=== PATIENT | male | born 1985 | race Two or more races ===

== ENCOUNTER 2020-10-30 00:40 | Inpatient (IN) | payer OTHER ==
[~2020-10-30] VITALS: Ht 172.7 cm; Wt 81.6 kg
[2020-10-30] MEDS ORDERED: KETOROLAC 30MG/ML VIAL IV STA (01:03)
[2020-10-30] MEDS ORDERED: ONDANSETRON HCL 4MG/2ML INJ IV STA (01:03)
[2020-10-30] MEDS ORDERED: SODIUM CHLORIDE 0.9% 1,000 ML IV ONE (01:15)
[2020-10-30 01:18] LABS: BASOPHILS % 0.5 % (0.0-2.0); HEMATOCRIT. 42.3 % (42.0-52.0); HEMOGLOBIN. 13.2 g/dL (14.0-18.0); LYMPHOCYTES % 13.1 % (20.0-50.0); MEAN CORPUSCULAR HEMOGLOBIN 21.3 pg (28.0-32.0); MEAN CORPUSCULAR VOLUME 68.5 fL (80.0-94.0); MEAN PLATELET VOLUME 7.1 fl (7.4-10.4); MONOCYTES % 3.1 % (2.0-8.0); NEUTROPHILS % 83.3 % (40.0-76.0); PLATELET 464 x1000/uL (130-400); RED BLOOD CELL COUNT 6.18 mill/uL (4.7-6.1); RED CELL DISTRIBUTION WIDTH 19.7 % (11.6-14.6)
[2020-10-30 01:27] LABS: CHLORIDE 96 mEq/L (98-107)
[2020-10-30 01:55] LABS: PLATELET ESTIMATE INCREASED
[2020-10-30 02:23] LABS: CLARITY URINE CLEAR (CLEAR); COLOR URINE YELLOW (YELLOW); KETONES URINE 3+ (NEGATIVE); LEUKOCYTE ESTERASE URINE NEGATIVE (NEGATIVE); NITRITE URINE NEGATIVE (NEGATIVE); OCCULT BLOOD URINE NEGATIVE (NEGATIVE); PROTEIN URINE 2+ (NEGATIVE); SPECIFIC GRAVITY URINE 1.029 (1.005-1.030); UROBILINOGEN URINE 0.2 E.U./dL (0.2-1.0)
[2020-10-30] MEDS ORDERED: MORPHINE SULFATE 10 MG/ML CPJ IV SCH (02:45)
[2020-10-30] MEDS: ONDANSETRON HCL 4MG/2ML INJ IV PRN ×2 (06:16→10:49)
[2020-10-30] MEDS: MORPHINE SULFATE 4 MG/ML CPJ (NOT FOR IM USE) IV PRN ×4 (06:17→20:57)
[2020-10-30] MEDS ORDERED: INSULIN LISPRO 100 UNITS/ML SUBCUT SCH (07:00)
[2020-10-30] MEDS ORDERED: METF-416 MT (10:25)
[2020-10-30 10:34] VITALS: BP 176/113
[2020-10-30 11:07] VITALS: BP 176/113
[2020-10-30] MEDS ORDERED: DEXTROSE 50% WATER 50ML SYRINGE IV PRN (11:15)
[2020-10-30 12:00] VITALS: BP 159/107
[2020-10-30] MEDS: BLOOD SUGAR DIAGNOSTIC STRIP TEST SCH ×3 (12:20→21:13)
[2020-10-30] MEDS: METOCLOPRAMIDE HCL 10MG/2ML VIAL IV SCH ×3 (12:40→23:49)
[2020-10-30] MEDS: INSULIN LISPRO 100 UNITS/ML SUBCUT SCH ×3 (12:43→21:12)
[2020-10-30] MEDS ORDERED: HYDRALAZINE 20MG/ML VIAL IV NR (12:45)
[2020-10-30] MEDS: AMLODIPINE 10MG TABLET PO SCH (13:17)
[2020-10-30] MEDS ORDERED: INSULIN GLARGINE UD 100 UNITS/ML SYR SUBCUT NR (13:30)
[2020-10-30] MEDS ORDERED: POTASSIUM CHLORIDE INJ 40 MEQ in DEXT 5% WATER 250 ML IV NR (13:30)
[2020-10-30] MEDS ORDERED: MAGNESIUM/ALUMINUM HYDROXIDE/SIMETHICONE 30ML UDC PO PRN (14:15)
[2020-10-30] MEDS: LORAZEPAM 0.5MG TABLET PO PRN (14:31)
[2020-10-30 16:00] VITALS: BP 161/86
[2020-10-30] MEDS ORDERED: HYDROCODONE/ACETAMINOPHEN 5/325MG TABLET PO PRN (16:45)
[2020-10-30 20:00] VITALS: BP 158/88
[2020-10-30] MEDS: METOPROLOL TARTRATE 50MG TABLET PO SCH (20:56)
[2020-10-30] MEDS: INSULIN GLARGINE UD 100 UNITS/ML SYR SUBCUT SCH (21:13)
[2020-10-30 21:29] LABS: *BARBITURATES SCREEN URINE NEGATIVE (NEGATIVE); *BENZODIAZEPINES SCREEN URINE NEGATIVE (NEGATIVE); *COCAINE SCREEN URINE NEGATIVE (NEGATIVE)
[2020-10-30 21:31] LABS: CANNABINOID URINE SCREEN PRESUMTIVE POSITIVE (NEGATIVE); METHADONE URINE SCREEN NEGATIVE (NEGATIVE); OPIATES URINE SCREEN PRESUMTIVE POSITIVE (NEGATIVE); PHENCYCLIDINE URINE SCREEN NEGATIVE (NEGATIVE)
[2020-10-30 21:33] LABS: *AMPHETAMINES SCREEN URINE NEGATIVE (NEGATIVE)
[2020-10-31] VITALS: BP 146/94
[2020-10-31] MEDS: LORAZEPAM 0.5MG TABLET PO PRN (01:42)
[2020-10-31 04:00] VITALS: BP 129/83
[2020-10-31] MEDS: METOCLOPRAMIDE HCL 10MG/2ML VIAL IV SCH (06:21)
[2020-10-31] MEDS ORDERED: OMEPRAZOLE 20MG CAPSULE EXTENDED RELEASE PO SCH (07:20)
[2020-10-31 07:21] LABS: BASOPHILS % 0.7 % (0.0-2.0); HEMATOCRIT. 36.6 % (42.0-52.0); HEMOGLOBIN. 12.1 g/dL (14.0-18.0); LYMPHOCYTES % 20.5 % (20.0-50.0); MEAN CORPUSCULAR HEMOGLOBIN 22.3 pg (28.0-32.0); MEAN CORPUSCULAR VOLUME 67.2 fL (80.0-94.0); MEAN PLATELET VOLUME 7.7 fl (7.4-10.4); NEUTROPHILS % 66.8 % (40.0-76.0); PLATELET 292 x1000/uL (130-400); RED BLOOD CELL COUNT 5.46 mill/uL (4.7-6.1); RED CELL DISTRIBUTION WIDTH 19.1 % (11.6-14.6)
[2020-10-31 07:35] LABS: CHLORIDE 94 mEq/L (98-107)
[2020-10-31] MEDS: BLOOD SUGAR DIAGNOSTIC STRIP TEST SCH (07:47)
[2020-10-31] MEDS: AMLODIPINE 10MG TABLET PO SCH (08:54)
[2020-10-31] MEDS: METOPROLOL TARTRATE 50MG TABLET PO SCH (08:54)
[2020-10-31] MEDS: INSULIN LISPRO 100 UNITS/ML SUBCUT SCH (08:55)
[2020-10-31 09:01] VITALS: BP 125/71
[2020-10-31] MEDS: MORPHINE SULFATE 4 MG/ML CPJ (NOT FOR IM USE) IV PRN (09:01)
[2020-10-31] MEDS: INSULIN GLARGINE UD 100 UNITS/ML SYR SUBCUT SCH (10:00)
== END 2020-10-31 10:50 | disposition left against medical advice (07) | DRG 48 ==
LOC: ER 00:49 → 6WST 05:42 → ENRESERV 08:46
PROVIDERS: ADMIT Internal Medicine; ATTEND Internal Medicine
DX: E11.43 Type 2 diabetes mellitus with diabetic autonomic (poly)neuropathy (principal); E87.8 Other disorders of electrolyte and fluid balance, not elsewhere classified; K76.0 Fatty (change of) liver, not elsewhere classified; E11.65 Type 2 diabetes mellitus with hyperglycemia; K31.84 Gastroparesis; K52.9 Noninfective gastroenteritis and colitis, unspecified; E87.1 Hypo-osmolality and hyponatremia; E87.6 Hypokalemia; Z53.29 Procedure and treatment not carried out because of patient's decision for other reasons; Z82.49 Family history of ischemic heart disease and other diseases of the circulatory system; Z87.442 Personal history of urinary calculi
CPT/HCPCS: 36415; 74176; 80048; 80053; 80305; 81003; 82962; 83036; 85025; 93005; 99285; J0360; J1815; J1885; J2270; J2405; J2765; J3480; J7030; J7060

== ENCOUNTER 2020-12-12 01:51 | Inpatient (IN) | payer MEDICAID, OTHER ==
[~2020-12-12] VITALS: Ht 172.7 cm; Wt 88.5 kg
[~2020-12-12 01:51] MED LIST: METF-416 MT
[2020-12-12] MEDS ORDERED: KETOROLAC 30MG/ML VIAL IV STA (02:48)
[2020-12-12] MEDS ORDERED: ONDANSETRON HCL 4MG/2ML INJ IV STA (02:48)
[2020-12-12] MEDS ORDERED: FAMOTIDINE 20MG/2ML VIAL IV STA (02:48)
[2020-12-12] MEDS ORDERED: SODIUM CHLORIDE 0.9% 1,000 ML IV ONE (03:00)
[2020-12-12 03:28] LABS: HEMATOCRIT. 33.8 % (42.0-52.0); HEMOGLOBIN. 10.9 g/dL (14.0-18.0); MEAN CORPUSCULAR HEMOGLOBIN 24.2 pg (28.0-32.0); MEAN PLATELET VOLUME 7.5 fl (7.4-10.4); PLATELET 266 x1000/uL (130-400); RED CELL DISTRIBUTION WIDTH 25.2 % (11.6-14.6)
[2020-12-12] MEDS: DIPHENHYDRAMINE 50MG/ML VIAL IV NR ×2 (03:28→08:35)
[2020-12-12] MEDS ORDERED: MORPHINE SULFATE 4 MG/ML CPJ (NOT FOR IM USE) IV NR (03:30)
[2020-12-12 03:32] LABS: CHLORIDE 97 mEq/L (98-107)
[2020-12-12 03:47] LABS: CLARITY URINE CLEAR (CLEAR); COLOR URINE YELLOW (YELLOW); KETONES URINE 1+ (NEGATIVE); LEUKOCYTE ESTERASE URINE NEGATIVE (NEGATIVE); NITRITE URINE NEGATIVE (NEGATIVE); OCCULT BLOOD URINE NEGATIVE (NEGATIVE); PROTEIN URINE NEGATIVE (NEGATIVE); SPECIFIC GRAVITY URINE 1.027 (1.005-1.030)
[2020-12-12 05:17] LABS: PLATELET ESTIMATE NORMAL
[2020-12-12] MEDS ORDERED: MORPHINE SULFATE 4 MG/ML CPJ (NOT FOR IM USE) IV ONE (06:00)
[2020-12-12] MEDS ORDERED: ONDANSETRON HCL 4MG/2ML INJ IV PRN (07:00)
[2020-12-12] MEDS ORDERED: HYDRALAZINE 20MG/ML VIAL IV PRN (07:00)
[2020-12-12] MEDS ORDERED: MAGNESIUM/ALUMINUM HYDROXIDE/SIMETHICONE 30ML UDC PO PRN (07:00)
[2020-12-12] MEDS ORDERED: DOCUSATE SODIUM 100MG CAPSULE PO PRN (07:00)
[2020-12-12] MEDS ORDERED: GUAIFENESIN 200MG/10ML SUGAR FREE UDC PO PRN (07:00)
[2020-12-12] MEDS ORDERED: ACETAMINOPHEN 325MG TABLET PO PRN (07:00)
[2020-12-12] MEDS ORDERED: CLONIDINE 0.1MG TABLET PO PRN (07:00)
[2020-12-12] MEDS ORDERED: DIPHENHYDRAMINE 50MG/ML VIAL IV PRN (07:00)
[2020-12-12] MEDS ORDERED: IPRATROPIUM/ALBUTEROL 0.5-3(2.5)MG/3ML NEB HHN PRN (07:00)
[2020-12-12] MEDS ORDERED: NALOXONE HCL 0.4MG/ML VIAL IV PRN (07:30)
[2020-12-12] MEDS ORDERED: POTASSIUM CHLORIDE 20MEQ TABLET SR PO NR (08:15)
[2020-12-12] MEDS: LORAZEPAM 2MG/ML CPJ IV PRN ×2 (08:35→22:34)
[2020-12-12] MEDS ORDERED: CEFTRIAXONE 1 G PREMIX 50 ML IV SCH (09:00)
[2020-12-12] MEDS: ENOXAPARIN 40MG/0.4ML SYR SUBCUT SCH (09:15)
[2020-12-12] MEDS: SODIUM CHLORIDE 0.45% 1,000 ML IV SCH ×2 (09:16→18:04)
[2020-12-12] MEDS: MORPHINE SULFATE 2 MG/ML CPJ (NOT FOR IM USE) IV PRN ×2 (10:20→16:51)
[2020-12-12] MEDS ORDERED: FOLIC ACID 1 MG, THIAMINE HCL 100 MG, MVI, ADULT NO.1 10 ML in DEXTROSE 5% WATER 1,000 ML IV NR (12:00)
[2020-12-12] MEDS ORDERED: HYDRALAZINE 10 MG in SODIUM CHLORIDE 0.9% 49.5 ML IV PRN (14:15)
[2020-12-12] MEDS: SODIUM CHLORIDE 0.9% INJ 3ML FLUSH IVF SCH ×2 (14:39→21:30)
[2020-12-12 15:44] VITALS: BP 144/92
[2020-12-12] MEDS ORDERED: GLIP10TA10 MT (15:55)
[2020-12-12 16:00] VITALS: BP 144/92
[2020-12-12] MEDS ORDERED: DEXTROSE 50% WATER 50ML SYRINGE IV PRN (18:15)
[2020-12-12] MEDS: BLOOD SUGAR DIAGNOSTIC STRIP TEST SCH ×2 (18:33→21:00)
[2020-12-12] MEDS: INSULIN LISPRO 100 UNITS/ML SUBCUT SCH ×2 (18:49→22:40)
[2020-12-12 20:00] VITALS: BP 146/91
[2020-12-13] VITALS: BP 148/94
[2020-12-13] MEDS: MORPHINE SULFATE 2 MG/ML CPJ (NOT FOR IM USE) IV PRN ×2 (02:39→17:52)
[2020-12-13 04:00] VITALS: BP 125/97
[2020-12-13] MEDS: SODIUM CHLORIDE 0.45% 1,000 ML IV SCH ×2 (04:53→14:39)
[2020-12-13] MEDS: LORAZEPAM 2MG/ML CPJ IV PRN (04:53)
[2020-12-13] MEDS: SODIUM CHLORIDE 0.9% INJ 3ML FLUSH IVF SCH ×2 (06:35→14:39)
[2020-12-13] MEDS: BLOOD SUGAR DIAGNOSTIC STRIP TEST SCH ×3 (06:35→17:46)
[2020-12-13] MEDS: INSULIN LISPRO 100 UNITS/ML SUBCUT SCH ×3 (07:06→17:48)
[2020-12-13 07:21] LABS: BASOPHILS % 2.1 % (0.0-2.0); EOSINOPHILS % 2.6 % (0.0-5.0); HEMATOCRIT. 36.8 % (42.0-52.0); HEMOGLOBIN. 11.9 g/dL (14.0-18.0); LYMPHOCYTES % 33.2 % (20.0-50.0); MEAN CORPUSCULAR HEMOGLOBIN 24.3 pg (28.0-32.0); MEAN CORPUSCULAR VOLUME 75.1 fL (80.0-94.0); MEAN PLATELET VOLUME 7.5 fl (7.4-10.4); MONOCYTES % 12.2 % (2.0-8.0); NEUTROPHILS % 49.9 % (40.0-76.0); PLATELET 281 x1000/uL (130-400); RED CELL DISTRIBUTION WIDTH 25.5 % (11.6-14.6)
[2020-12-13 07:42] LABS: CHLORIDE 100 mEq/L (98-107)
[2020-12-13 08:00] VITALS: BP 143/79
[2020-12-13] MEDS ORDERED: POTASSIUM CHLORIDE 20MEQ TABLET SR PO NR (08:15)
[2020-12-13] MEDS ORDERED: CEFTRIAXONE 1,000 MG in DEXTROSE 5% WATER 50 ML IV SCH (09:00)
[2020-12-13] MEDS: ENOXAPARIN 40MG/0.4ML SYR SUBCUT SCH (09:24)
[2020-12-13] MEDS ORDERED: LORAZEPAM 2MG/ML CPJ IV NR (10:00)
[2020-12-13] MEDS: HYDROCODONE/ACETAMINOPHEN 5/325MG TABLET PO PRN ×2 (11:46→16:40)
[2020-12-13 12:00] VITALS: BP 149/81
[2020-12-13 13:49] LABS: *AMPHETAMINES SCREEN URINE NEGATIVE (NEGATIVE); *BARBITURATES SCREEN URINE NEGATIVE (NEGATIVE); *BENZODIAZEPINES SCREEN URINE NEGATIVE (NEGATIVE)
[2020-12-13 13:50] LABS: METHADONE URINE SCREEN NEGATIVE (NEGATIVE); OPIATES URINE SCREEN NEGATIVE (NEGATIVE); PHENCYCLIDINE URINE SCREEN NEGATIVE (NEGATIVE)
[2020-12-13 13:51] LABS: CANNABINOID URINE SCREEN PRESUMTIVE POSITIVE (NEGATIVE)
[2020-12-13 13:52] LABS: *COCAINE SCREEN URINE NEGATIVE (NEGATIVE)
[2020-12-13] MEDS ORDERED: CHLORDIAZEPOXIDE 5 MG CAPSULE PO SCH (14:00)
[2020-12-13 16:00] VITALS: BP 139/104
[2020-12-13 17:52] VITALS: BP 139/104
== END 2020-12-13 21:10 | disposition left against medical advice (07) | DRG 282 ==
LOC: ER 01:51 → MICUSO 05:54 → EDBEDREQSVC 06:04 → EDBEDREQ 06:04 → EDBEDREQTM 06:04 → 6EST 14:03
PROVIDERS: ADMIT Internal Medicine; ATTEND Internal Medicine
DX: K85.90 Acute pancreatitis without necrosis or infection, unspecified (principal); K76.0 Fatty (change of) liver, not elsewhere classified; D64.9 Anemia, unspecified; E87.1 Hypo-osmolality and hyponatremia; E11.9 Type 2 diabetes mellitus without complications; E87.6 Hypokalemia; N20.0 Calculus of kidney; Z53.29 Procedure and treatment not carried out because of patient's decision for other reasons; F10.239 Alcohol dependence with withdrawal, unspecified; F41.9 Anxiety disorder, unspecified; Z79.84 Long term (current) use of oral hypoglycemic drugs; Z82.49 Family history of ischemic heart disease and other diseases of the circulatory system; Z86.73 Personal history of transient ischemic attack (TIA), and cerebral infarction without residual deficits
CPT/HCPCS: 36415; 71045; 74176; 80053; 80305; 81003; 82962; 83036; 85025; 93005; 99285; J0696; J1200; J1650; J1815; J1885; J2060; J2270; J2405; J3411; J3490; J7060; J7070

== ENCOUNTER 2020-12-18 04:37 | Inpatient (IN) | payer MEDICAID, OTHER ==
[~2020-12-18] VITALS: Ht 172.7 cm; Wt 82.1 kg
[~2020-12-18 04:37] MED LIST changes: +GLIP10TA10 MT
[2020-12-18] MEDS ORDERED: KETOROLAC 30MG/ML VIAL IV STA (05:10)
[2020-12-18] MEDS ORDERED: ONDANSETRON HCL 4MG/2ML INJ IV STA (05:10)
[2020-12-18] MEDS ORDERED: MORPHINE SULFATE 4 MG/ML CPJ (NOT FOR IM USE) IV ONE ×3 (05:45→08:30)
[2020-12-18 05:49] LABS: EOSINOPHILS % 0.1 % (0.0-5.0); HEMATOCRIT. 40.3 % (42.0-52.0); HEMOGLOBIN. 13.2 g/dL (14.0-18.0); LYMPHOCYTES % 27.4 % (20.0-50.0); MEAN CORPUSCULAR HEMOGLOBIN 24.8 pg (28.0-32.0); MEAN CORPUSCULAR VOLUME 75.9 fL (80.0-94.0); MEAN PLATELET VOLUME 7.1 fl (7.4-10.4); MONOCYTES % 5.9 % (2.0-8.0); NEUTROPHILS % 64.6 % (40.0-76.0); PLATELET 409 x1000/uL (130-400); RED BLOOD CELL COUNT 5.31 mill/uL (4.7-6.1); RED CELL DISTRIBUTION WIDTH 26.4 % (11.6-14.6)
[2020-12-18 05:54] LABS: CLARITY URINE CLEAR (CLEAR); COLOR URINE YELLOW (YELLOW); KETONES URINE 2+ (NEGATIVE); LEUKOCYTE ESTERASE URINE NEGATIVE (NEGATIVE); NITRITE URINE NEGATIVE (NEGATIVE); OCCULT BLOOD URINE NEGATIVE (NEGATIVE); PH URINE 5.5 (4.5-8.0); PROTEIN URINE 2+ (NEGATIVE); SPECIFIC GRAVITY URINE 1.026 (1.005-1.030)
[2020-12-18 05:55] LABS: CHLORIDE 99 mEq/L (98-107)
[2020-12-18 06:00] LABS: PROTHROMBIN TIME 10.8 sec (9.6-11.0)
[2020-12-18] MEDS ORDERED: GUAIFENESIN 200MG/10ML SUGAR FREE UDC PO PRN (10:45)
[2020-12-18] MEDS ORDERED: MAGNESIUM/ALUMINUM HYDROXIDE/SIMETHICONE 30ML UDC PO PRN (10:45)
[2020-12-18] MEDS ORDERED: ACETAMINOPHEN 325MG TABLET PO PRN (10:45)
[2020-12-18] MEDS ORDERED: DOCUSATE SODIUM 100MG CAPSULE PO PRN (10:45)
[2020-12-18] MEDS: PANTOPRAZOLE SODIUM 40 MG/VIAL IV SCH (11:20)
[2020-12-18] MEDS: DEXT 5%/0.45% NACL 1000ML 1,000 ML IV SCH (11:40)
[2020-12-18] MEDS: ONDANSETRON HCL 4MG/2ML INJ IV PRN ×2 (12:01→20:10)
[2020-12-18 14:32] LABS: PLATELET ESTIMATE SLIGHTLY INCREASED
[2020-12-18] MEDS: KETOROLAC 15MG/ML VIAL IV PRN ×2 (14:33→20:10)
[2020-12-18] MEDS: CLONIDINE 0.1MG TABLET PO PRN (14:34)
[2020-12-18] MEDS: CHLORDIAZEPOXIDE 5 MG CAPSULE PO SCH ×2 (15:25→22:06)
[2020-12-18] MEDS: LORAZEPAM 2MG/ML CPJ IV PRN (23:12)
[2020-12-19] MEDS: DEXT 5%/0.45% NACL 1000ML 1,000 ML IV SCH ×2 (01:03→13:35)
[2020-12-19] MEDS: KETOROLAC 15MG/ML VIAL IV PRN ×3 (03:13→23:23)
[2020-12-19] MEDS: LORAZEPAM 2MG/ML CPJ IV PRN ×3 (04:18→17:56)
[2020-12-19 04:29] LABS: HEMATOCRIT. 33.7 % (42.0-52.0); MEAN CORPUSCULAR HEMOGLOBIN 24.6 pg (28.0-32.0); MEAN CORPUSCULAR VOLUME 75.3 fL (80.0-94.0); PLATELET 313 x1000/uL (130-400); RED BLOOD CELL COUNT 4.48 mill/uL (4.7-6.1); RED CELL DISTRIBUTION WIDTH 26.3 % (11.6-14.6)
[2020-12-19 04:33] LABS: CHLORIDE 94 mEq/L (98-107)
[2020-12-19] MEDS: CHLORDIAZEPOXIDE 5 MG CAPSULE PO SCH ×2 (06:42→14:00)
[2020-12-19] MEDS ORDERED: DEXTROSE 50% WATER 50ML SYRINGE IV PRN (08:30)
[2020-12-19 09:00] VITALS: BP 160/106
[2020-12-19] MEDS: PANTOPRAZOLE SODIUM 40 MG/VIAL IV SCH (09:35)
[2020-12-19] MEDS ORDERED: POTASSIUM CHLORIDE 20MEQ TABLET SR PO NR (10:00)
[2020-12-19] MEDS: CLONIDINE 0.1MG TABLET PO PRN (10:10)
[2020-12-19 11:11] LABS: PLATELET ESTIMATE NORMAL
[2020-12-19 11:14] VITALS: BP 160/109
[2020-12-19 12:00] VITALS: BP 156/105
[2020-12-19] MEDS: INSULIN LISPRO 100 UNITS/ML SUBCUT SCH ×3 (13:40→21:00)
[2020-12-19 16:00] VITALS: BP 144/102
[2020-12-19] MEDS ORDERED: LORAZEPAM 1MG TABLET PO PRN (18:30)
[2020-12-19 23:23] VITALS: BP 143/103
[2020-12-20] MEDS: INSULIN LISPRO 100 UNITS/ML SUBCUT SCH (00:02)
[2020-12-20] MEDS: CLONIDINE 0.1MG TABLET PO PRN (00:02)
== END 2020-12-20 00:41 | disposition left against medical advice (07) | DRG 420 ==
LOC: ER 04:37 → MICUSO 08:26 → ENRESERV 14:27 → 6EST 12-19 07:55
PROVIDERS: ADMIT Hospitalist; ATTEND Hospitalist
DX: E11.65 Type 2 diabetes mellitus with hyperglycemia (principal); F10.139 Alcohol abuse with withdrawal, unspecified; Z86.73 Personal history of transient ischemic attack (TIA), and cerebral infarction without residual deficits; Z79.899 Other long term (current) drug therapy; Z87.19 Personal history of other diseases of the digestive system; I10 Essential (primary) hypertension
CPT/HCPCS: 36415; 74176; 76705; 80053; 81003; 82962; 83036; 85025; 93005; 99285; C9113; J1815; J1885; J2060; J2270; J2405

== ENCOUNTER 2021-04-26 18:37 | Emergency (ER) | payer MEDICAID, OTHER ==
[~2021-04-26] VITALS: Ht 170.2 cm; Wt 80.0 kg
[2021-04-26] MEDS ORDERED: ONDANSETRON HCL 4MG/2ML INJ IV STA (19:33)
[2021-04-26] MEDS ORDERED: MAGNESIUM/ALUMINUM HYDROXIDE/SIMETHICONE 30ML UDC PO STA (19:33)
[2021-04-26] MEDS ORDERED: KETOROLAC 30MG/ML VIAL IV STA (19:33)
[2021-04-26] MEDS ORDERED: VISCOUS LIDOCAINE 2% 15 ML UDC PO STA (19:33)
[2021-04-26] MEDS ORDERED: FAMOTIDINE 20MG/2ML VIAL IV ONE (19:45)
[2021-04-26] MEDS ORDERED: SODIUM CHLORIDE 0.9% 1,000 ML IV ONE (19:45)
[2021-04-26 19:59] LABS: BASOPHILS % 1.2 % (0.0-2.0); EOSINOPHILS % 0.4 % (0.0-5.0); HEMATOCRIT. 38.7 % (42.0-52.0); HEMOGLOBIN. 12.9 g/dL (14.0-18.0); LYMPHOCYTES % 22.3 % (20.0-50.0); MEAN CORPUSCULAR HEMOGLOBIN 26.7 pg (28.0-32.0); MEAN CORPUSCULAR VOLUME 80.2 fL (80.0-94.0); MEAN PLATELET VOLUME 6.6 fl (7.4-10.4); MONOCYTES % 6.1 % (2.0-8.0); PLATELET 210 x1000/uL (130-400); RED BLOOD CELL COUNT 4.83 mill/uL (4.7-6.1); RED CELL DISTRIBUTION WIDTH 25.1 % (11.6-14.6)
[2021-04-26 20:06] LABS: CHLORIDE 105 mEq/L (98-107)
[2021-04-26 20:10] LABS: ETHANOL BLOOD 172 mg/dL
[2021-04-26 20:16] LABS: PLATELET ESTIMATE NORMAL
[2021-04-26] MEDS ORDERED: LORAZEPAM 2MG/ML CPJ IV NR (21:30)
[2021-04-26 22:10] LABS: CLARITY URINE CLEAR (CLEAR); COLOR URINE YELLOW (YELLOW); KETONES URINE 1+ (NEGATIVE); LEUKOCYTE ESTERASE URINE NEGATIVE (NEGATIVE); NITRITE URINE NEGATIVE (NEGATIVE); OCCULT BLOOD URINE NEGATIVE (NEGATIVE); PH URINE 6.5 (4.5-8.0); PROTEIN URINE TRACE (NEGATIVE); SPECIFIC GRAVITY URINE 1.013 (1.005-1.030); UROBILINOGEN URINE 0.2 E.U./dL (0.2-1.0)
[2021-04-26 22:28] LABS: *BENZODIAZEPINES SCREEN URINE PRESUMTIVE POSITIVE (NEGATIVE); METHADONE URINE SCREEN NEGATIVE (NEGATIVE); OPIATES URINE SCREEN NEGATIVE (NEGATIVE)
[2021-04-26 22:29] LABS: *BARBITURATES SCREEN URINE NEGATIVE (NEGATIVE); CANNABINOID URINE SCREEN NEGATIVE (NEGATIVE); PHENCYCLIDINE URINE SCREEN NEGATIVE (NEGATIVE)
[2021-04-26 22:30] LABS: *COCAINE SCREEN URINE NEGATIVE (NEGATIVE)
[2021-04-26 22:33] LABS: *AMPHETAMINES SCREEN URINE NEGATIVE (NEGATIVE)
[2021-04-26] MEDS ORDERED: HYDROCODONE/ACETAMINOPHEN 5/325MG TABLET PO ONE (23:15)
[2021-04-26 23:34] VITALS: BP 135/90
== END 2021-04-27 00:11 | disposition home or self-care (01) ==
LOC: ER 18:37
DX: T51.0X1A Toxic effect of ethanol, accidental (unintentional), initial encounter (principal); G92.8 Other toxic encephalopathy; R74.01 Elevation of levels of liver transaminase levels; R10.31 Right lower quadrant pain; E11.9 Type 2 diabetes mellitus without complications; I10 Essential (primary) hypertension; F32.A Depression, unspecified; Y90.6 Blood alcohol level of 120-199 mg/100 ml; Z79.84 Long term (current) use of oral hypoglycemic drugs; Y92.018 Other place in single-family (private) house as the place of occurrence of the external cause
CPT/HCPCS: 36415; 74176; 80053; 80305; 80307; 80320; 80329; 81003; 83690; 85025; 93005; 96361; 96374; 96375; 99285; J1885; J2060; J2405; J3490; J7030; G0480

== ENCOUNTER 2021-12-09 06:59 | Inpatient (IN) | payer MEDICAID, OTHER ==
[~2021-12-09] VITALS: Ht 180.3 cm; Wt 79.8 kg
[2021-12-09] MEDS ORDERED: ONDANSETRON HCL 4MG/2ML INJ IV STA (07:14)
[2021-12-09] MEDS ORDERED: MORPHINE SULFATE 4 MG/ML CPJ (NOT FOR IM USE) IV STA (07:14)
[2021-12-09] MEDS ORDERED: SODIUM CHLORIDE 0.9% 1,000 ML IV ONE (07:15)
[2021-12-09 08:13] LABS: BASOPHILS % 0.4 % (0.0-2.0); HEMOGLOBIN. 13.3 g/dL (14.0-18.0); LYMPHOCYTES % 17.6 % (20.0-50.0); MEAN CORPUSCULAR HEMOGLOBIN 26.8 pg (28.0-32.0); MEAN CORPUSCULAR VOLUME 80.5 fL (80.0-94.0); MEAN PLATELET VOLUME 7.2 fl (7.4-10.4); MONOCYTES % 9.8 % (2.0-8.0); NEUTROPHILS % 72.2 % (40.0-76.0); PLATELET 275 x1000/uL (130-400); RED BLOOD CELL COUNT 4.97 mill/uL (4.7-6.1); RED CELL DISTRIBUTION WIDTH 17.7 % (11.6-14.6)
[2021-12-09 08:21] LABS: CHLORIDE 95 mEq/L (98-107)
[2021-12-09 08:22] LABS: INR 1.1; PROTHROMBIN TIME 11.4 sec (9.6-11.0)
[2021-12-09] MEDS: ONDANSETRON HCL 4MG/2ML INJ IV NR ×2 (10:39→15:51)
[2021-12-09] MEDS: MORPHINE SULFATE 4 MG/ML CPJ (NOT FOR IM USE) IV NR ×2 (10:39→15:43)
[2021-12-09] MEDS ORDERED: MORPHINE SULFATE 4 MG/ML CPJ (NOT FOR IM USE) IV ONE (11:15)
[2021-12-09 12:19] LABS: CLARITY URINE CLEAR (CLEAR); COLOR URINE YELLOW (YELLOW); KETONES URINE 4+ (NEGATIVE); LEUKOCYTE ESTERASE URINE NEGATIVE (NEGATIVE); NITRITE URINE NEGATIVE (NEGATIVE); OCCULT BLOOD URINE TRACE (NEGATIVE); PH URINE 5.5 (4.5-8.0); PROTEIN URINE 2+ (NEGATIVE); SPECIFIC GRAVITY URINE 1.032 (1.005-1.030)
[2021-12-09] MEDS ORDERED: CLONIDINE 0.1MG TABLET PO NR (13:45)
[2021-12-09 16:00] VITALS: BP 154/88
[2021-12-09] MEDS ORDERED: TRAMADOL 50MG TABLET PO PRN (16:00)
[2021-12-09] MEDS ORDERED: DEXTROSE 50% WATER 50ML SYRINGE IV PRN ×2 (16:00)
[2021-12-09] MEDS ORDERED: DOCUSATE SODIUM 100MG CAPSULE PO PRN (16:00)
[2021-12-09] MEDS ORDERED: ACETAMINOPHEN 325MG TABLET PO PRN (16:00)
[2021-12-09] MEDS ORDERED: MAGNESIUM/ALUMINUM HYDROXIDE/SIMETHICONE 30ML UDC PO PRN (16:00)
[2021-12-09] MEDS: SODIUM CHLORIDE 0.9% 1,000 ML IV SCH (16:15)
[2021-12-09] MEDS: AMLODIPINE 5MG TABLET PO SCH (18:10)
[2021-12-09] MEDS: BLOOD SUGAR DIAGNOSTIC STRIP TEST SCH ×2 (18:12→21:00)
[2021-12-09] MEDS: ENOXAPARIN 40MG/0.4ML SYR SUBCUT SCH (18:13)
[2021-12-09] MEDS: INSULIN LISPRO 100 UNITS/ML SUBCUT SCH ×2 (18:35→21:00)
[2021-12-09 20:00] VITALS: BP 147/77
[2021-12-09 20:15] VITALS: BP 175/78
[2021-12-10] VITALS: BP 137/81
[2021-12-10] MEDS ORDERED: CHLORDIAZEPOXIDE 25MG CAPSULE PO NR (01:15)
[2021-12-10 04:00] VITALS: BP 116/79
[2021-12-10] MEDS: SODIUM CHLORIDE 0.9% 1,000 ML IV SCH ×2 (05:35→18:54)
[2021-12-10] MEDS: BLOOD SUGAR DIAGNOSTIC STRIP TEST SCH ×4 (06:40→21:00)
[2021-12-10] MEDS: CHLORDIAZEPOXIDE 25MG CAPSULE PO SCH ×3 (07:09→21:05)
[2021-12-10 07:36] LABS: BASOPHILS % 0.7 % (0.0-2.0); EOSINOPHILS % 0.1 % (0.0-5.0); HEMATOCRIT. 38.7 % (42.0-52.0); HEMOGLOBIN. 13.1 g/dL (14.0-18.0); LYMPHOCYTES % 17.3 % (20.0-50.0); MEAN CORPUSCULAR HEMOGLOBIN 27.2 pg (28.0-32.0); MEAN CORPUSCULAR VOLUME 80.3 fL (80.0-94.0); MEAN PLATELET VOLUME 7.5 fl (7.4-10.4); NEUTROPHILS % 72.9 % (40.0-76.0); PLATELET 233 x1000/uL (130-400); RED BLOOD CELL COUNT 4.82 mill/uL (4.7-6.1); RED CELL DISTRIBUTION WIDTH 17.2 % (11.6-14.6)
[2021-12-10] MEDS: INSULIN LISPRO 100 UNITS/ML SUBCUT SCH ×4 (07:50→21:00)
[2021-12-10] MEDS ORDERED: FOLIC ACID 1MG TABLET PO SCH (09:00)
[2021-12-10] MEDS ORDERED: MULTIVITAMINS,THER W-MINERALS TABLET PO SCH (09:00)
[2021-12-10] MEDS ORDERED: THIAMINE HCL 100MG TABLET PO SCH (09:00)
[2021-12-10] MEDS: AMLODIPINE 5MG TABLET PO SCH (09:00)
[2021-12-10] MEDS ORDERED: NALOXONE HCL 0.4MG/ML VIAL IV PRN (09:15)
[2021-12-10] MEDS ORDERED: ONDANSETRON HCL 4MG/2ML INJ IV PRN (09:15)
[2021-12-10] MEDS: PANTOPRAZOLE SODIUM 40 MG/VIAL IV SCH (09:49)
[2021-12-10] MEDS: MORPHINE SULFATE 2 MG/ML CPJ (NOT FOR IM USE) IV PRN ×3 (09:50→18:53)
[2021-12-10 10:01] LABS: CHLORIDE 91 mEq/L (98-107)
[2021-12-10 10:09] LABS: PHOSPHORUS 1.8 mg/dL (2.5-4.9); T4 FREE 1.41 ng/dL (0.76-1.46)
[2021-12-10] MEDS ORDERED: KCL 20MEQ/100ML PREMIX 100 ML IV ONE (10:30)
[2021-12-10 12:00] VITALS: BP 146/80
[2021-12-10] MEDS ORDERED: KCL 20MEQ/100ML PREMIX 100 ML IV SCH (12:00)
[2021-12-10] MEDS: METOCLOPRAMIDE HCL 10MG/2ML VIAL IV SCH ×2 (13:25→18:53)
[2021-12-10 16:00] VITALS: BP 146/87
[2021-12-10] MEDS: ENOXAPARIN 40MG/0.4ML SYR SUBCUT SCH (17:17)
[2021-12-10 20:00] VITALS: BP 160/76
[2021-12-10] MEDS ORDERED: POTASSIUM CHLORIDE INJ 40 MEQ in DEXT 5% WATER 500 ML IV ONE (20:15)
[2021-12-10] MEDS ORDERED: MAGNESIUM 1 G PREMIX 100 ML IV ONE (20:15)
[2021-12-10] MEDS ORDERED: POTASSIUM CHLORIDE 20MEQ/PACKET PO NR (21:00)
[2021-12-10] MEDS ORDERED: POTASSIUM PHOS,M-BASIC-D-BASIC 15 MMOL in DEXT 5% WATER 245 ML IV ONE (22:00)
[2021-12-10] MEDS ORDERED: KCL 20MEQ/100ML X 2 FOR TOTAL KCL 40MEQ/200ML IV SCH (22:00)
[2021-12-10] MEDS ORDERED: INSULIN GLARGINE 100 UNITS/ML SUBCUT SCH (22:00)
[2021-12-11] VITALS: BP 147/100
[2021-12-11] MEDS: METOCLOPRAMIDE HCL 10MG/2ML VIAL IV SCH ×2 (00:16→05:34)
[2021-12-11] MEDS: MORPHINE SULFATE 2 MG/ML CPJ (NOT FOR IM USE) IV PRN ×2 (00:17→05:38)
[2021-12-11 04:00] VITALS: BP 151/98
[2021-12-11] MEDS: CHLORDIAZEPOXIDE 25MG CAPSULE PO SCH (05:34)
[2021-12-11 05:38] VITALS: BP 151/98
[2021-12-11 08:48] LABS: BASOPHILS % 0.8 % (0.0-2.0); EOSINOPHILS % 0.4 % (0.0-5.0); HEMATOCRIT. 39.5 % (42.0-52.0); HEMOGLOBIN. 13.2 g/dL (14.0-18.0); LYMPHOCYTES % 23.9 % (20.0-50.0); MEAN CORPUSCULAR HEMOGLOBIN 27.1 pg (28.0-32.0); MEAN PLATELET VOLUME 7.9 fl (7.4-10.4); MONOCYTES % 9.8 % (2.0-8.0); NEUTROPHILS % 65.1 % (40.0-76.0); PLATELET 218 x1000/uL (130-400); RED BLOOD CELL COUNT 4.88 mill/uL (4.7-6.1); RED CELL DISTRIBUTION WIDTH 17.1 % (11.6-14.6)
[2021-12-11] MEDS: PANTOPRAZOLE SODIUM 40 MG/VIAL IV SCH (08:51)
[2021-12-11 09:04] LABS: CHLORIDE 96 mEq/L (98-107)
== END 2021-12-11 09:35 | disposition left against medical advice (07) | DRG 244 ==
LOC: ER 06:59 → 6EST 10:25 → EDBEDREQTM 10:28 → EDBEDREQ 10:28 → EDBEDREQSVC 10:28 → ENRESERV 11:41
PROVIDERS: ADMIT Internal Medicine; ATTEND Internal Medicine
DX: K57.90 Diverticulosis of intestine, part unspecified, without perforation or abscess without bleeding (principal); K76.0 Fatty (change of) liver, not elsewhere classified; I11.9 Hypertensive heart disease without heart failure; E83.39 Other disorders of phosphorus metabolism; E87.1 Hypo-osmolality and hyponatremia; E11.9 Type 2 diabetes mellitus without complications; Z20.822 Contact with and (suspected) exposure to COVID-19; E87.6 Hypokalemia; I25.10 Atherosclerotic heart disease of native coronary artery without angina pectoris; G89.29 Other chronic pain; F10.229 Alcohol dependence with intoxication, unspecified; Y90.6 Blood alcohol level of 120-199 mg/100 ml; Z53.29 Procedure and treatment not carried out because of patient's decision for other reasons; Z86.73 Personal history of transient ischemic attack (TIA), and cerebral infarction without residual deficits; Z82.49 Family history of ischemic heart disease and other diseases of the circulatory system; Z86.19 Personal history of other infectious and parasitic diseases; N20.0 Calculus of kidney; Z87.19 Personal history of other diseases of the digestive system
CPT/HCPCS: 36415; 74176; 80048; 80053; 80076; 80320; 81003; 82140; 82962; 83036; 83735; 84100; 84439; 85025; 87426; 93005; 93970; 99285; C9113; C9803; J1650; J1815; J2270; J2405; J2765; J3480; J3490; J7030; J7060; G0480

== ENCOUNTER 2022-07-20 15:53 | Emergency (ER) | payer MEDICAID ==
[~2022-07-20] VITALS: Ht 170.2 cm; Wt 97.0 kg
[2022-07-20 16:10] VITALS: BP 138/66
[2022-07-20] MEDS ORDERED: SODIUM CHLORIDE 0.9% 1,000 ML IV ONE (16:45)
[2022-07-20] MEDS ORDERED: FENTANYL CITRATE/PF 50MCG/ML 2ML VIAL IM ONE (18:45)
[2022-07-20] MEDS ORDERED: ONDANSETRON 4MG ODT PO ONE (18:45)
== END 2022-07-20 19:35 | disposition left against medical advice (07) ==
LOC: ER 15:53
DX: R10.9 Unspecified abdominal pain (principal); R11.10 Vomiting, unspecified
CPT/HCPCS: 99283; J7030

== ENCOUNTER 2022-12-11 15:38 | Emergency (ER) | payer MEDICAID ==
[~2022-12-11] VITALS: Ht 175.3 cm; Wt 82.0 kg
[2022-12-11 15:43] VITALS: BP 137/98; PULSE 120; RESP 20; TEMP 98.3; O2SAT 100
[2022-12-11] MEDS ORDERED: METOCLOPRAMIDE HCL 10MG/2ML VIAL IV STA (15:43)
[2022-12-11] MEDS ORDERED: FAMOTIDINE 20MG/2ML VIAL IV STA (15:43)
[2022-12-11] MEDS ORDERED: SODIUM CHLORIDE 0.9% 1,000 ML IV ONE (15:45)
== END 2022-12-11 17:01 | disposition left against medical advice (07) ==
LOC: ER 15:38
DX: R11.2 Nausea with vomiting, unspecified (principal); I10 Essential (primary) hypertension; E11.9 Type 2 diabetes mellitus without complications; Z53.21 Procedure and treatment not carried out due to patient leaving prior to being seen by health care provider; Z68.26 Body mass index [BMI] 26.0-26.9, adult
CPT/HCPCS: 99283; 71045; 93005; J7030

== ENCOUNTER 2022-12-12 12:39 | Emergency (ER) | payer MEDICAID ==
[~2022-12-12] VITALS: Ht 167.6 cm; Wt 91.0 kg
[2022-12-12 12:50] VITALS: BP 165/107; PULSE 109; RESP 16; TEMP 98.3; O2SAT 95
[2022-12-12] MEDS ORDERED: SODIUM CHLORIDE 0.9% 1,000 ML IV ONE (13:15)
[2022-12-12 13:55] LABS: BASOPHILS % 1.2 % (0.0-2.0); EOSINOPHILS % 0.3 % (0.0-5.0); HEMATOCRIT. 40.3 % (42.0-52.0); HEMOGLOBIN. 13.7 g/dL (14.0-18.0); LYMPHOCYTES % 26.3 % (20.0-50.0); MEAN CORPUSCULAR HEMOGLOBIN 27.6 pg (28.0-32.0); MEAN CORPUSCULAR HGB CONC 34.1 g/dL (31.0-37.0); MEAN CORPUSCULAR VOLUME 80.8 fL (80.0-94.0); MEAN PLATELET VOLUME 7.2 fl (7.4-10.4); NEUTROPHILS % 66.2 % (40.0-76.0); PLATELET 273 x1000/uL (130-400); RED BLOOD CELL COUNT 4.99 mill/uL (4.7-6.1); RED CELL DISTRIBUTION WIDTH 17.7 % (11.6-14.6); WHITE BLOOD COUNT 7.5 x1000/uL (4.5-11.0)
[2022-12-12 13:59] LABS: CHLORIDE 104 mEq/L (98-107); INDEX HEMOLYSI 3 (1-3); INDEX ICTERIC 1 (1-4); INDEX LIPEMIC 1 (1-3); POTASSIUM 3.8 mEq/L (3.5-5.1); SODIUM 138 mEq/L (136-145)
[2022-12-12 14:08] LABS: ALANINE AMINOTRANSFERASE 53 IU/L (13-61); ALBUMIN 3.7 g/dL (3.4-5.0); ASPARTATE AMINOTRANSFERASE 45 IU/L (15-37); BILIRUBIN TOTAL 0.3 mg/dL (0.1-1.0); CALCIUM 8.6 mg/dL (8.5-10.1); CARBON DIOXIDE 26 mEq/L (21-32); CREATININE 0.7 mg/dL (0.6-1.3); ETHANOL BLOOD 282 mg/dL (-10); GLUCOSE 247 mg/dL (70-105); PROTEIN TOTAL 7.6 g/dL (6.0-8.3); UREA NITROGEN BLOOD 7 mg/dL (7-21)
== END 2022-12-12 15:25 | disposition home or self-care (01) ==
LOC: ER 12:39
DX: F10.129 Alcohol abuse with intoxication, unspecified (principal); Y90.8 Blood alcohol level of 240 mg/100 ml or more
CPT/HCPCS: 80053; 80320; 85025; 36415; 96360; 99283; J7030; Z7610 ×2; G0480

== ENCOUNTER 2022-12-14 10:24 | Emergency (ER) | payer MEDICAID ==
[~2022-12-14] VITALS: Ht 172.7 cm; Wt 68.0 kg
[2022-12-14 10:25] VITALS: TEMP 98.5; O2SAT 98
[2022-12-14 11:32] LABS: CHLORIDE 98 mEq/L (98-107); INDEX HEMOLYSI 1 (1-3); INDEX ICTERIC 1 (1-4); INDEX LIPEMIC 1 (1-3); POTASSIUM 3.7 mEq/L (3.5-5.1); SODIUM 135 mEq/L (136-145)
[2022-12-14 11:39] LABS: ALANINE AMINOTRANSFERASE 60 IU/L (13-61); ALBUMIN 4.1 g/dL (3.4-5.0); ASPARTATE AMINOTRANSFERASE 52 IU/L (15-37); BASOPHILS % 1.2 % (0.0-2.0); BILIRUBIN TOTAL 0.4 mg/dL (0.1-1.0); CALCIUM 8.7 mg/dL (8.5-10.1); CARBON DIOXIDE 20 mEq/L (21-32); CREATININE 0.8 mg/dL (0.6-1.3); GLUCOSE 314 mg/dL (70-105); HEMATOCRIT. 45.1 % (42.0-52.0); LYMPHOCYTES % 27.9 % (20.0-50.0); MEAN CORPUSCULAR HEMOGLOBIN 26.8 pg (28.0-32.0); MEAN CORPUSCULAR HGB CONC 33.1 g/dL (31.0-37.0); MEAN CORPUSCULAR VOLUME 80.9 fL (80.0-94.0); MEAN PLATELET VOLUME 7.2 fl (7.4-10.4); MONOCYTES % 4.5 % (2.0-8.0); NEUTROPHILS % 66.4 % (40.0-76.0); PLATELET 324 x1000/uL (130-400); PROTEIN TOTAL 8.6 g/dL (6.0-8.3); RED BLOOD CELL COUNT 5.58 mill/uL (4.7-6.1); RED CELL DISTRIBUTION WIDTH 18.3 % (11.6-14.6); UREA NITROGEN BLOOD 11 mg/dL (7-21); WHITE BLOOD COUNT 10.5 x1000/uL (4.5-11.0)
[2022-12-14] MEDS ORDERED: SODIUM CHLORIDE 0.9% 1,000 ML IV ONE (12:00)
[2022-12-14] MEDS ORDERED: FAMOTIDINE 20MG/2ML VIAL IV ONE (12:00)
[2022-12-14] MEDS ORDERED: ONDANSETRON HCL 4MG/2ML INJ IV ONE (12:00)
[2022-12-14] MEDS ORDERED: METOCLOPRAMIDE HCL 10MG/2ML VIAL IV ONE (12:45)
[2022-12-14] MEDS ORDERED: LORAZEPAM 2MG/ML CPJ IV ONE (13:00)
[2022-12-14 13:25] VITALS: BP 148/102; PULSE 116; RESP 20
== END 2022-12-14 13:38 | disposition left against medical advice (07) ==
LOC: ER 10:31
DX: K29.70 Gastritis, unspecified, without bleeding (principal); F10.229 Alcohol dependence with intoxication, unspecified; F32.9 Major depressive disorder, single episode, unspecified; E11.9 Type 2 diabetes mellitus without complications; I10 Essential (primary) hypertension; Y90.0 Blood alcohol level of less than 20 mg/100 ml
CPT/HCPCS: 80053; 85025; 36415; 93005; 96361; 96374; 96375; 99284; J3490; J2060; J2765; J2405; J7030; Z7610 ×2

== ENCOUNTER 2022-12-20 00:30 | Emergency (ER) | payer MEDICAID ==
[~2022-12-20] VITALS: Ht 170.2 cm; Wt 91.0 kg
[2022-12-20 00:34] VITALS: BP 144/100; PULSE 119; RESP 18; TEMP 98.5; O2SAT 97
[2022-12-20] MEDS ORDERED: ONDANSETRON 4MG ODT PO ONE (07:45)
[2022-12-20] MEDS ORDERED: PANTOPRAZOLE 40MG DR TABLET PO ONE (07:45)
== END 2022-12-20 08:40 | disposition left against medical advice (07) ==
LOC: ER 00:30
DX: Z53.21 Procedure and treatment not carried out due to patient leaving prior to being seen by health care provider (principal)
CPT/HCPCS: 99281; 99283

== ENCOUNTER 2023-02-25 01:32 | Emergency (ER) | payer MEDICAID ==
[~2023-02-25] VITALS: Ht 170.2 cm; Wt 84.0 kg
[2023-02-25] MEDS ORDERED: ONDANSETRON HCL 4MG/2ML INJ IV STA (01:39)
[2023-02-25] MEDS ORDERED: MORPHINE SULFATE 4 MG/ML CPJ (NOT FOR IM USE) IV STA (01:39)
[2023-02-25 01:40] VITALS: O2SAT 98
[2023-02-25 02:44] LABS: BASOPHILS % 0.6 % (0.0-2.0); HEMATOCRIT. 45.7 % (42.0-52.0); HEMOGLOBIN. 15.2 g/dL (14.0-18.0); LYMPHOCYTES % 17.7 % (20.0-50.0); MEAN CORPUSCULAR HGB CONC 33.2 g/dL (31.0-37.0); MEAN CORPUSCULAR VOLUME 81.3 fL (80.0-94.0); NEUTROPHILS % 76.7 % (40.0-76.0); PLATELET 333 x1000/uL (130-400); RED BLOOD CELL COUNT 5.63 mill/uL (4.7-6.1); RED CELL DISTRIBUTION WIDTH 17.2 % (11.6-14.6); WHITE BLOOD COUNT 12.4 x1000/uL (4.5-11.0)
[2023-02-25 02:51] LABS: PROTHROMBIN TIME 10.9 sec (9.6-11.0)
[2023-02-25 02:53] LABS: CHLORIDE 85 mEq/L (98-107); INDEX HEMOLYSI 3 (1-3); INDEX ICTERIC 2 (1-4); INDEX LIPEMIC 1 (1-3); SODIUM 127 mEq/L (136-145)
[2023-02-25 03:00] LABS: ALANINE AMINOTRANSFERASE 50 IU/L (13-61); ASPARTATE AMINOTRANSFERASE 33 IU/L (15-37); BILIRUBIN TOTAL 0.7 mg/dL (0.1-1.0); CALCIUM 9.5 mg/dL (8.5-10.1); CARBON DIOXIDE 15 mEq/L (21-32); CREATININE 0.8 mg/dL (0.6-1.3); ETHANOL BLOOD 144 mg/dL (<10); PROTEIN TOTAL 9.1 g/dL (6.0-8.3); UREA NITROGEN BLOOD 12 mg/dL (7-21)
[2023-02-25 03:13] LABS: GLUCOSE 444 mg/dL (70-105)
[2023-02-25] MEDS ORDERED: LACTATED RINGERS 1,000 ML IV SCH (04:00)
[2023-02-25 04:10] LABS: BG BASE EXCESS -6.7 mmol/L (-2.0-2.0); BG CARBOXYHEMOGLOBIN 0.4 % (0.5-1.5); BG DEOXYHEMOGLOBIN 7.7 % (0.0-5.0); BG FRACTION INSPIRED OXYGEN 21; BG HCO3 ACT 18.2 mmol/L (22.0-26.0); BG METHEMOGLOBIN 0.2 % (0.0-1.5); BG OXYGEN SATURATION 92.3 % (92.0-98.5); BG OXYHEMOGLOBIN 91.7 % (94.0-97.0); BG PCO2 34.7 mmHg (35.0-45.0); BG PH 7.337 (7.350-7.450); BG PO2 71.7 mmHg (75.0-100.0); BG SAMPLE SITE ALINE; BG TOTAL HEMOGLOBIN 15.4 g/dL (12.0-18.0); BG VENT MODE ROOM AIR
[2023-02-25 04:43] LABS: CLARITY URINE CLEAR (CLEAR); COLOR URINE YELLOW (YELLOW); GLUCOSE URINE 3+ (NEGATIVE); KETONES URINE 2+ (NEGATIVE); LEUKOCYTE ESTERASE URINE NEGATIVE (NEGATIVE); NITRITE URINE NEGATIVE (NEGATIVE); OCCULT BLOOD URINE NEGATIVE (NEGATIVE); PROTEIN URINE TRACE (NEGATIVE); SPECIFIC GRAVITY URINE 1.034 (1.005-1.030); UROBILINOGEN URINE 0.2 E.U./dL (0.2-1.0)
[2023-02-25 04:46] LABS: BACTERIA URINE NONE SEEN; RBC URINE NONE SEEN /hpf (0-2); SQUAMOUS EPITHELIAL CELL URINE NONE SEEN /lpf (RARE/1+); WBC URINE NONE SEEN /hpf (0-2); YEAST URINE NONE SEEN
[2023-02-25] MEDS ORDERED: IOHEXOL-300 100 ML BOTTLE ONE (05:06)
[2023-02-25] MEDS ORDERED: PANTOPRAZOLE SODIUM 40 MG/VIAL IV ONE (06:15)
[2023-02-25] MEDS ORDERED: OMEP40CA20 MT (06:16)
[2023-02-25 07:00] VITALS: BP 140/94; PULSE 105; RESP 19; TEMP 98.7
== END 2023-02-25 07:01 | disposition home or self-care (01) ==
LOC: ER 01:48
DX: R10.84 Generalized abdominal pain (principal); E11.9 Type 2 diabetes mellitus without complications
CPT/HCPCS: 80053; 81003; 80320; 82962; 83690; 85025; 85610; 36415; 74177; 82805; 82375; 96361; 96374; 96375; 99285; 36600; Q9967; J2405; J2270; Z7610 ×4; G0480

== ENCOUNTER 2023-03-02 09:56 | Emergency (ER) | payer MEDICAID ==
[~2023-03-02] VITALS: Ht 170.2 cm; Wt 89.0 kg
[~2023-03-02 09:56] MED LIST changes: +OMEP40CA20 MT
[2023-03-02 10:05] VITALS: O2SAT 98
[2023-03-02] MEDS ORDERED: ONDANSETRON 4MG ODT PO STA (11:03)
[2023-03-02 11:06] LABS: BASOPHILS % 0.3 % (0.0-2.0); HEMATOCRIT. 41.8 % (42.0-52.0); HEMOGLOBIN. 13.7 g/dL (14.0-18.0); MEAN CORPUSCULAR HEMOGLOBIN 27.2 pg (28.0-32.0); MEAN CORPUSCULAR HGB CONC 32.8 g/dL (31.0-37.0); MEAN CORPUSCULAR VOLUME 82.9 fL (80.0-94.0); MEAN PLATELET VOLUME 7.7 fl (7.4-10.4); MONOCYTES % 3.6 % (2.0-8.0); NEUTROPHILS % 80.1 % (40.0-76.0); PLATELET 273 x1000/uL (130-400); RED BLOOD CELL COUNT 5.05 mill/uL (4.7-6.1); RED CELL DISTRIBUTION WIDTH 17.4 % (11.6-14.6); WHITE BLOOD COUNT 8.2 x1000/uL (4.5-11.0)
[2023-03-02] MEDS ORDERED: KETOROLAC 60MG/2ML VIAL IM ONE (11:30)
[2023-03-02 11:34] LABS: CHLORIDE 91 mEq/L (98-107); INDEX HEMOLYSI 3 (1-3); INDEX ICTERIC 2 (1-4); INDEX LIPEMIC 1 (1-3); POTASSIUM 3.4 mEq/L (3.5-5.1); SODIUM 130 mEq/L (136-145)
[2023-03-02 11:42] LABS: ALANINE AMINOTRANSFERASE 78 IU/L (13-61); ALBUMIN 4.2 g/dL (3.4-5.0); ASPARTATE AMINOTRANSFERASE 89 IU/L (15-37); BILIRUBIN TOTAL 0.7 mg/dL (0.1-1.0); CALCIUM 9.4 mg/dL (8.5-10.1); CARBON DIOXIDE 13 mEq/L (21-32); CREATININE 0.8 mg/dL (0.6-1.3); GLUCOSE 377 mg/dL (70-105); PROTEIN TOTAL 8.7 g/dL (6.0-8.3); UREA NITROGEN BLOOD 12 mg/dL (7-21)
[2023-03-02 12:23] LABS: ETHANOL BLOOD 295 mg/dL (<10)
[2023-03-02 12:30] VITALS: BP 158/99; PULSE 82; RESP 16; TEMP 98.6
== END 2023-03-02 13:46 | disposition home or self-care (01) ==
LOC: ER 09:56
DX: R10.11 Right upper quadrant pain (principal); F10.229 Alcohol dependence with intoxication, unspecified; E11.9 Type 2 diabetes mellitus without complications; Y90.8 Blood alcohol level of 240 mg/100 ml or more
CPT/HCPCS: 80053; 80320; 83690; 85025; 36415; 76705; 96372; 99285; Q0162; J1885; G0480

== ENCOUNTER 2023-05-21 10:28 | Emergency (ER) | payer MEDICAID ==
[~2023-05-21] VITALS: Ht 172.7 cm; Wt 80.0 kg
[2023-05-21 10:32] VITALS: BP 140/86; PULSE 86; RESP 18; TEMP 98; O2SAT 99
== END 2023-05-21 15:06 | disposition left against medical advice (07) ==
LOC: ER 10:28
DX: R10.11 Right upper quadrant pain (principal); E11.9 Type 2 diabetes mellitus without complications; Z87.442 Personal history of urinary calculi; Z87.898 Personal history of other specified conditions
CPT/HCPCS: 99283

== ENCOUNTER 2023-05-31 16:53 | Emergency (ER) | payer MEDICAID ==
[~2023-05-31] VITALS: Ht 175.3 cm; Wt 80.0 kg
[2023-05-31] MEDS: BLOOD SUGAR DIAGNOSTIC STRIP TEST SCH ×5 (00:30→23:30)
[2023-05-31 16:54] VITALS: O2SAT 97
[2023-05-31] MEDS ORDERED: MORPHINE SULFATE 4 MG/ML CPJ (NOT FOR IM USE) IV STA (17:01)
[2023-05-31] MEDS ORDERED: ONDANSETRON HCL 4MG/2ML INJ IV STA (17:01)
[2023-05-31] MEDS ORDERED: PANTOPRAZOLE SODIUM 40 MG/VIAL IV ONE (17:15)
[2023-05-31] MEDS ORDERED: SODIUM CHLORIDE 0.9% 1,000 ML IV ONE (17:15)
[2023-05-31 17:53] LABS: BASOPHILS % 1.5 % (0.0-2.0); DIFFERENTIAL COMMENT 0; EOSINOPHILS % 0.1 % (0.0-5.0); HEMATOCRIT. 38.2 % (42.0-52.0); HEMOGLOBIN. 12.8 g/dL (14.0-18.0); LYMPHOCYTES % 39.6 % (20.0-50.0); MEAN CORPUSCULAR HEMOGLOBIN 26.6 pg (28.0-32.0); MEAN CORPUSCULAR HGB CONC 33.6 g/dL (31.0-37.0); MEAN CORPUSCULAR VOLUME 79.3 fL (80.0-94.0); MEAN PLATELET VOLUME 7.9 fl (7.4-10.4); MONOCYTES % 9.8 % (2.0-8.0); PLATELET 209 x1000/uL (130-400); RED BLOOD CELL COUNT 4.82 mill/uL (4.7-6.1); WHITE BLOOD COUNT 4.6 x1000/uL (4.5-11.0)
[2023-05-31 17:59] LABS: CLARITY URINE CLEAR (CLEAR); COLOR URINE YELLOW (YELLOW); GLUCOSE URINE 3+ (NEGATIVE); KETONES URINE 3+ (NEGATIVE); LEUKOCYTE ESTERASE URINE NEGATIVE (NEGATIVE); NITRITE URINE NEGATIVE (NEGATIVE); OCCULT BLOOD URINE TRACE (NEGATIVE); PROTEIN URINE 2+ (NEGATIVE); SPECIFIC GRAVITY URINE 1.024 (1.005-1.030)
[2023-05-31 18:04] LABS: PROTHROMBIN TIME 10.9 sec (9.6-11.0)
[2023-05-31 18:14] LABS: LACTIC ACID 7.6 mmol/L (0.4-2.0)
[2023-05-31] MEDS ORDERED: CEFTRIAXONE 2GM/50ML (ADDEASE) 50 ML IV ONE (18:15)
[2023-05-31] MEDS ORDERED: SODIUM CHLORIDE 0.9% 1000ML BAG (SEPSIS BOLUS) IV ONE (18:15)
[2023-05-31 18:23] LABS: BACTERIA URINE NONE SEEN; RBC URINE 0-2 /hpf (0-2); SQUAMOUS EPITHELIAL CELL URINE 1+ /lpf (RARE/1+); WBC URINE 0-2 /hpf (0-2)
[2023-05-31] MEDS ORDERED: CEFTRIAXONE 2 G in DEXTROSE 5% WATER 50 ML IV NR (18:30)
[2023-05-31 18:37] LABS: ALANINE AMINOTRANSFERASE 77 IU/L (10-49); ALBUMIN 4.4 g/dL (3.2-4.8); ASPARTATE AMINOTRANSFERASE 87 IU/L (<34); BILIRUBIN TOTAL 0.5 mg/dL (0.1-1.0); CALCIUM 9.1 mg/dL (8.7-10.4); CARBON DIOXIDE 18 mEq/L (21-32); CHLORIDE 95 mEq/L (98-107); CREATININE 0.9 mg/dL (0.6-1.3); ETHANOL BLOOD 275 mg/dL (<10); GLUCOSE 273 mg/dL (70-105); POTASSIUM 3.7 mEq/L (3.5-5.1); PROTEIN TOTAL 8.2 g/dL (6.0-8.3); SODIUM 138 mEq/L (136-145); UREA NITROGEN BLOOD 9 mg/dL (9-23)
[2023-05-31] MEDS ORDERED: LORAZEPAM 2MG/ML INJ IV ONE (18:45)
[2023-05-31 18:55] LABS: BETA HYDROXYBUTYRATE 1.8 mMol/L (0.0-0.3); TROPONIN I HIGH SENSITIVITY 5 ng/L (3.0-53)
[2023-05-31] MEDS ORDERED: ENOXAPARIN 40MG/0.4ML SYR SUBCUT SCH (19:30)
[2023-05-31] MEDS ORDERED: ACETAMINOPHEN 325MG TABLET PO PRN ×2 (19:30)
[2023-05-31] MEDS ORDERED: DEXTROSE 50% WATER 50ML SYRINGE IV PRN (19:30)
[2023-05-31] MEDS ORDERED: MVI, ADULT NO.1 10 ML, FOLIC ACID 1 MG, THIAMINE HCL 100 MG in SODIUM CHLORIDE 0.9% 1,0... IV SCH ×4 (19:30)
[2023-05-31] MEDS ORDERED: SODIUM CHLORIDE 0.9% 1,000 ML IV SCH (19:30)
[2023-05-31] MEDS ORDERED: MAGNESIUM/ALUMINUM HYDROXIDE/SIMETHICONE 30ML UDC PO PRN (19:30)
[2023-05-31] MEDS ORDERED: CLONIDINE 0.1MG TABLET PO PRN (19:30)
[2023-05-31] MEDS: DEXT 5%/0.9% NACL 1,000 ML IV SCH (19:30)
[2023-05-31] MEDS ORDERED: INSULIN REGULAR 100U/100ML PMX 100 ML IV SCH (19:30)
[2023-05-31] MEDS ORDERED: GUAIFENESIN 200MG/10ML SUGAR FREE UDC PO PRN (19:30)
[2023-05-31] MEDS ORDERED: IPRATROPIUM/ALBUTEROL 0.5-3(2.5)MG/3ML NEB HHN PRN (19:30)
[2023-05-31] MEDS ORDERED: DOCUSATE SODIUM 100MG CAPSULE PO PRN (19:30)
[2023-05-31] MEDS ORDERED: KCL 20MEQ/100ML PREMIX 100 ML IV PRN (19:30)
[2023-05-31] MEDS ORDERED: POTASSIUM CHLORIDE INJ 40 MEQ in SODIUM CHLORIDE 0.9% 230 ML IV PRN (19:30)
[2023-05-31] MEDS ORDERED: VANCOMYCIN 1.5GM/250ML IV NR (20:15)
[2023-05-31] MEDS ORDERED: PIPERACILLIN/TAZO 3.375G/50ML 50 ML IV NR (20:15)
[2023-05-31 22:00] LABS: BG CARBOXYHEMOGLOBIN 0.7 % (0.5-1.5); BG DEOXYHEMOGLOBIN 3.2 % (0.0-5.0); BG HCO3 ACT 19.2 mmol/L (22.0-26.0); BG METHEMOGLOBIN 0.3 % (0.0-1.5); BG OXYGEN SATURATION 96.8 % (92.0-98.5); BG OXYHEMOGLOBIN 95.8 % (94.0-97.0); BG PCO2 29.9 mmHg (35.0-45.0); BG PH 7.426 (7.350-7.450); BG SAMPLE SITE RIGHT RADIAL; BG TOTAL HEMOGLOBIN 12.7 g/dL (12.0-18.0); BG VENT MODE ROOM AIR
[2023-05-31] MEDS: ONDANSETRON HCL 4MG/2ML INJ IV PRN (22:39)
[2023-06-01] MEDS: DEXT 5%/0.9% NACL 1,000 ML IV SCH ×2 (00:08→07:40)
[2023-06-01] MEDS: LORAZEPAM 2MG/ML INJ IV PRN ×2 (00:25→04:51)
[2023-06-01 00:27] LABS: CALCIUM 8.9 mg/dL (8.7-10.4); CARBON DIOXIDE 19 mEq/L (21-32); CHLORIDE 95 mEq/L (98-107); CREATINE KINASE MB FRACTION 7.3 ng/mL (0.5-3.6); CREATININE 0.9 mg/dL (0.6-1.3); GLUCOSE 220 mg/dL (70-105); IRON 30 ug/dL (65-175); PHOSPHORUS 3.4 mg/dL (2.5-4.9); POTASSIUM 3.5 mEq/L (3.5-5.1); SODIUM 133 mEq/L (136-145); TOTAL IRON BINDING CAPACITY 393 ug/dl (250-425); UREA NITROGEN BLOOD 7 mg/dL (9-23)
[2023-06-01 00:44] LABS: CARBON DIOXIDE 16 mEq/L (21-32); CHLORIDE 96 mEq/L (98-107); PHOSPHORUS 3.4 mg/dL (2.5-4.9); POTASSIUM 3.4 mEq/L (3.5-5.1); SODIUM 134 mEq/L (136-145)
[2023-06-01 00:46] LABS: VITAMIN B12 SERUM 1638 pg/mL (211-911)
[2023-06-01] MEDS: BLOOD SUGAR DIAGNOSTIC STRIP TEST SCH ×6 (02:00→14:45)
[2023-06-01] MEDS: ONDANSETRON HCL 4MG/2ML INJ IV PRN ×2 (03:59→13:40)
[2023-06-01 04:46] LABS: BASOPHILS % 0.5 % (0.0-2.0); HEMATOCRIT. 34.5 % (42.0-52.0); LYMPHOCYTES % 34.9 % (20.0-50.0); MEAN CORPUSCULAR HEMOGLOBIN 25.9 pg (28.0-32.0); MEAN CORPUSCULAR HGB CONC 31.9 g/dL (31.0-37.0); MEAN CORPUSCULAR VOLUME 81.3 fL (80.0-94.0); MEAN PLATELET VOLUME 7.6 fl (7.4-10.4); MONOCYTES % 14.9 % (2.0-8.0); NEUTROPHILS % 49.7 % (40.0-76.0); PLATELET 187 x1000/uL (130-400); RED BLOOD CELL COUNT 4.25 mill/uL (4.7-6.1); RED CELL DISTRIBUTION WIDTH 18.1 % (11.6-14.6); WHITE BLOOD COUNT 6.3 x1000/uL (4.5-11.0)
[2023-06-01 04:55] LABS: CARBON DIOXIDE 16 mEq/L (21-32); CHLORIDE 95 mEq/L (98-107); PHOSPHORUS 2.3 mg/dL (2.5-4.9); POTASSIUM 2.9 mEq/L (3.5-5.1); SODIUM 132 mEq/L (136-145)
[2023-06-01 04:57] LABS: CREATINE KINASE MB FRACTION 8.7 ng/mL (0.5-3.6)
[2023-06-01 05:00] LABS: ALANINE AMINOTRANSFERASE 67 IU/L (10-49); ALBUMIN 4.2 g/dL (3.2-4.8); ASPARTATE AMINOTRANSFERASE 66 IU/L (<34); BILIRUBIN TOTAL 0.6 mg/dL (0.1-1.0); CALCIUM 8.9 mg/dL (8.7-10.4); CARBON DIOXIDE 14 mEq/L (21-32); CHLORIDE 96 mEq/L (98-107); CHOLESTEROL 280 mg/dL (<200); CREATININE 0.8 mg/dL (0.6-1.3); GLUCOSE 111 mg/dL (70-105); HDL CHOLESTEROL 68 mg/dL (>55); LDL CHOLESTEROL 154 mg/dL (5-100); POTASSIUM 2.9 mEq/L (3.5-5.1); PROTEIN TOTAL 7.6 g/dL (6.0-8.3); SODIUM 131 mEq/L (136-145); T4 FREE 1.03 ng/dL (0.89-1.76); THYROID STIMULATING HORMONE 0.42 uIU/mL (0.55-4.78); TRIGLYCERIDE 351 mg/dL (0-150); UREA NITROGEN BLOOD 9 mg/dL (9-23)
[2023-06-01] MEDS ORDERED: VANCOMYCIN 750MG PREMIX 150 ML IV SCH (06:00)
[2023-06-01] MEDS ORDERED: MAGNESIUM 4 G PREMIX 100 ML IV NR (06:00)
[2023-06-01] MEDS: PIPERACILLIN/TAZO 3.375G/50ML 50 ML IV SCH ×2 (06:22→14:29)
[2023-06-01] MEDS ORDERED: KCL 20MEQ/100ML PREMIX 100 ML IV SCH (07:00)
[2023-06-01] MEDS ORDERED: POTASSIUM PHOS,M-BASIC-D-BASIC 30 MMOL in DEXT 5% WATER 500 ML IV NR (07:30)
[2023-06-01] MEDS ORDERED: VANCOMYCIN 1.25GM PMX (XELLIA) 250 ML IV SCH (08:00)
[2023-06-01 08:47] LABS: ALANINE AMINOTRANSFERASE 60 IU/L (10-49); ALBUMIN 3.9 g/dL (3.2-4.8); ASPARTATE AMINOTRANSFERASE 60 IU/L (<34); BILIRUBIN TOTAL 0.9 mg/dL (0.1-1.0); CALCIUM 8.6 mg/dL (8.7-10.4); CARBON DIOXIDE 22 mEq/L (21-32); CHLORIDE 96 mEq/L (98-107); CREATININE 0.8 mg/dL (0.6-1.3); GLUCOSE 102 mg/dL (70-105); PROTEIN TOTAL 7.2 g/dL (6.0-8.3); SODIUM 130 mEq/L (136-145); UREA NITROGEN BLOOD 8 mg/dL (9-23)
[2023-06-01] MEDS ORDERED: FOLIC ACID 1MG TABLET PO SCH (09:00)
[2023-06-01] MEDS ORDERED: THIAMINE HCL 100MG TABLET PO SCH (09:00)
[2023-06-01] MEDS ORDERED: PANTOPRAZOLE SODIUM 40 MG/VIAL IV SCH (10:00)
[2023-06-01 10:30] VITALS: TEMP 98
[2023-06-01] MEDS ORDERED: POTASSIUM CHLORIDE INJ 30 MEQ in DEXT 5%/0.9% NACL 1,000 ML IV SCH (10:45)
[2023-06-01] MEDS ORDERED: DEXT 5%/0.9% NACL KCL 30MEQ/L 1,000 ML IV SCH (11:00)
[2023-06-01] MEDS ORDERED: LORAZEPAM 2MG/ML INJ IV PRN (12:00)
[2023-06-01] MEDS ORDERED: KCL 20MEQ/100ML PREMIX 100 ML IV NR (12:00)
[2023-06-01] MEDS ORDERED: INSULIN LISPRO 100 UNITS/ML SUBCUT SCH ×2 (13:20→17:50)
[2023-06-01] MEDS ORDERED: DEXTROSE 50% WATER 50ML SYRINGE IV PRN (13:30)
[2023-06-01] MEDS ORDERED: INSULIN GLARGINE 100 UNITS/ML SUBCUT NR (13:30)
[2023-06-01] MEDS ORDERED: CHLORDIAZEPOXIDE 25MG CAPSULE PO SCH (14:00)
[2023-06-01] MEDS ORDERED: SODIUM CHLORIDE 0.9% 1,000 ML IV SCH (14:15)
[2023-06-01 14:30] VITALS: BP 143/92; PULSE 82; RESP 19
[2023-06-01] MEDS ORDERED: METOCLOPRAMIDE HCL 10MG/2ML VIAL IV SCH (22:00)
[2023-06-02 06:26] LABS: FOLATE HEMATOCRIT 35.1 % (37.5-51.0)
[2023-06-02] MEDS ORDERED: INSULIN GLARGINE 100 UNITS/ML SUBCUT SCH (10:00)
[2023-06-03 13:11] LABS: FOLATE RBC 1707 ng/mL (>498)
== END 2023-06-01 15:49 | disposition left against medical advice (07) ==
LOC: ER 16:53 → EDBEDREQ 19:19 → EDBEDREQSVC 19:19 → ER 06-01 15:49
DX: R10.13 Epigastric pain (principal); E11.65 Type 2 diabetes mellitus with hyperglycemia; A41.9 Sepsis, unspecified organism; F10.229 Alcohol dependence with intoxication, unspecified; Y90.8 Blood alcohol level of 240 mg/100 ml or more
CPT/HCPCS: 80053 ×2; 80048; 81003; 82010; 80320; 82550 ×2; 82553 ×2; 82607; 82962 ×2; 83036; 83540; 83550; 83605; 83690; 83735 ×2; 83930; 84100 ×2; 85025 ×2; 85610; 87040; 87086; 84484 ×2; 36415 ×2; 84145; 71045; 70450; 76700; 82805; 82375; 93005; 99291; 36600; 82747; 85014; 80051; 80061; 84439; 84443; 93970; J3370; J0696; J1650; J3490 ×3; J1815 ×3; J2060 ×2; J2405 ×2; C9113 ×2; J2543 ×2; J3411; J2270; J7060 ×2; J7030; J3475; J3480 ×2; J7042; Z7610 ×4; G0480

== ENCOUNTER 2023-12-15 16:11 | Emergency (ER) | payer MEDICAID ==
[~2023-12-15] VITALS: Ht 167.6 cm; Wt 91.0 kg
[2023-12-15 16:17] VITALS: O2SAT 98
[2023-12-15] MEDS ORDERED: MORPHINE SULFATE 4 MG/ML INJ (FOR IV/IM USE) IV STA (16:30)
[2023-12-15 16:41] VITALS: TEMP 98
[2023-12-15 17:13] LABS: BASOPHILS % 0.3 % (0.0-2.0); DIFFERENTIAL COMMENT 0; HEMATOCRIT. 39.2 % (42.0-52.0); HEMOGLOBIN. 11.4 g/dL (14.0-18.0); LYMPHOCYTES % 13.8 % (20.0-50.0); MEAN CORPUSCULAR HEMOGLOBIN 20.5 pg (28.0-32.0); MEAN CORPUSCULAR HGB CONC 29.2 g/dL (31.0-37.0); MEAN CORPUSCULAR VOLUME 70.3 fL (80.0-94.0); MEAN PLATELET VOLUME 7.7 fl (7.4-10.4); NEUTROPHILS % 81.9 % (40.0-76.0); PLATELET 428 x1000/uL (130-400); RED BLOOD CELL COUNT 5.58 mill/uL (4.7-6.1); RED CELL DISTRIBUTION WIDTH 20.6 % (11.6-14.6); WHITE BLOOD COUNT 11.2 x1000/uL (4.5-11.0)
[2023-12-15 17:17] LABS: CHLORIDE 94 mEq/L (98-107); POTASSIUM 3.7 mEq/L (3.5-5.1); SODIUM 133 mEq/L (136-145)
[2023-12-15 17:18] LABS: CALCIUM 9.5 mg/dL (8.7-10.4); CARBON DIOXIDE 12 mEq/L (21-32)
[2023-12-15] MEDS: SODIUM CHLORIDE 0.9% 1,000 ML IV ONE (17:19)
[2023-12-15] MEDS: ONDANSETRON HCL 4MG/2ML INJ IV ONE (17:20)
[2023-12-15] MEDS: KETOROLAC 30MG/ML VIAL IV STA (17:20)
[2023-12-15] MEDS: LORAZEPAM 2MG/ML INJ IV ONE ×2 (17:20→18:44)
[2023-12-15 17:22] LABS: PROTHROMBIN TIME 11.3 sec (9.6-11.0)
[2023-12-15 17:23] LABS: ETHANOL BLOOD 233 mg/dL (<10); UREA NITROGEN BLOOD 10 mg/dL (9-23)
[2023-12-15 17:25] LABS: ALANINE AMINOTRANSFERASE 52 IU/L (10-49); ASPARTATE AMINOTRANSFERASE 40 IU/L (<34); BETA HYDROXYBUTYRATE 0.5 mMol/L (0.0-0.3); BILIRUBIN TOTAL 0.4 mg/dL (0.1-1.0); PROTEIN TOTAL 8.5 g/dL (6.0-8.3)
[2023-12-15] MEDS: CEFTRIAXONE 1GM/50ML 50 ML IV ONE (17:26)
[2023-12-15 17:27] LABS: BILIRUBIN DIRECT < 0.1 mg/dL (<=3.0); CREATININE 1.4 mg/dL (0.6-1.3)
[2023-12-15 17:31] LABS: GLUCOSE 469 mg/dL (70-105)
[2023-12-15] MEDS: MORPHINE SULFATE 4 MG/ML INJ (FOR IV/IM USE) IV ONE (17:37)
[2023-12-15] MEDS ORDERED: LACTATED RINGERS 1,000 ML IV SCH ×2 (17:45)
[2023-12-15] MEDS ORDERED: HYDROMORPHONE HCL/PF 2MG/ML INJ IV ONE (17:45)
[2023-12-15 17:48] LABS: CLARITY URINE CLEAR (CLEAR); COLOR URINE YELLOW (YELLOW); GLUCOSE URINE 3+ (NEGATIVE); KETONES URINE 1+ (NEGATIVE); LEUKOCYTE ESTERASE URINE NEGATIVE (NEGATIVE); NITRITE URINE NEGATIVE (NEGATIVE); OCCULT BLOOD URINE TRACE (NEGATIVE); PROTEIN URINE 1+ (NEGATIVE); SPECIFIC GRAVITY URINE 1.031 (1.005-1.030); UROBILINOGEN URINE 0.2 E.U./dL (0.2-1.0)
[2023-12-15 18:08] LABS: BACTERIA URINE 1+; RBC URINE NONE SEEN /hpf (0-2); SQUAMOUS EPITHELIAL CELL URINE NONE SEEN /lpf (RARE/1+); WBC URINE 0-2 /hpf (0-2)
[2023-12-15] MEDS ORDERED: KCL 20MEQ/100ML PREMIX 100 ML IV PRN ×2 (18:15→22:15)
[2023-12-15] MEDS ORDERED: BLOOD SUGAR DIAGNOSTIC STRIP TEST PRN ×2 (18:15→22:15)
[2023-12-15] MEDS ORDERED: MAGNESIUM 2 G PREMIX 50 ML IV PRN ×2 (18:15→22:15)
[2023-12-15] MEDS ORDERED: POTASSIUM CHLORIDE 40 MEQ in SODIUM CHLORIDE 0.9% 230 ML IV PRN ×2 (18:15→22:15)
[2023-12-15] MEDS ORDERED: SODIUM PHOSPHATE 15 MMOL in SODIUM CHLORIDE 0.9% 245 ML IV PRN ×2 (18:15→22:15)
[2023-12-15] MEDS ORDERED: INSULIN REGULAR (DRIP) 100 UNITS in SODIUM CHLORIDE 0.9% 99 ML IV SCH (18:15)
[2023-12-15] MEDS ORDERED: DEXT 5%/LACTATED RINGERS 1,000 ML IV SCH (18:15)
[2023-12-15] MEDS: LACTATED RINGERS 1,000 ML IV SCH (18:15)
[2023-12-15] MEDS ORDERED: DEXTROSE 50% WATER 50ML SYRINGE IV PRN ×2 (18:15→22:15)
[2023-12-15 18:37] LABS: PHOSPHORUS 4.3 mg/dL (2.5-4.9)
[2023-12-15] MEDS: BLOOD SUGAR DIAGNOSTIC STRIP TEST SCH (19:07)
[2023-12-15] MEDS: POTASSIUM CHLORIDE 20MEQ TABLET SR PO ONE (19:10)
[2023-12-15] MEDS: INSULIN REGULAR 100U/100ML PMX 100 ML IV SCH (19:40)
[2023-12-15 20:31] LABS: POTASSIUM 3.9 mEq/L (3.5-5.1)
[2023-12-15 20:32] LABS: CALCIUM 9.5 mg/dL (8.7-10.4)
[2023-12-15 20:37] LABS: CREATININE 1.5 mg/dL (0.6-1.3)
[2023-12-15 21:14] VITALS: BP 185/95; PULSE 135; RESP 19
[2023-12-15] MEDS: LORAZEPAM 2MG/ML INJ IV NR (22:00)
[2023-12-15] MEDS ORDERED: ACETAMINOPHEN 325MG TABLET PO PRN ×2 (22:00)
[2023-12-15] MEDS ORDERED: NALOXONE HCL 0.4MG/ML VIAL IV PRN (22:00)
[2023-12-15] MEDS ORDERED: CLONIDINE 0.1MG TABLET PO PRN (22:00)
[2023-12-15] MEDS ORDERED: MAGNESIUM/ALUMINUM HYDROXIDE/SIMETHICONE 30ML UDC PO PRN (22:00)
[2023-12-15] MEDS ORDERED: IPRATROPIUM/ALBUTEROL 0.5-3(2.5)MG/3ML NEB HHN PRN (22:00)
[2023-12-15] MEDS ORDERED: GUAIFENESIN 200MG/10ML SUGAR FREE UDC PO PRN (22:00)
[2023-12-15] MEDS: MORPHINE SULFATE 2 MG/ML INJ (NOT FOR IM USE) IV NR (22:00)
[2023-12-15] MEDS ORDERED: DOCUSATE SODIUM 100MG CAPSULE PO PRN (22:00)
[2023-12-15] MEDS ORDERED: INSULIN REGULAR 100U/100ML PMX 100 ML IV SCH (22:15)
[2023-12-15] MEDS ORDERED: DEXT 5%/0.9% NACL 1,000 ML IV SCH (22:15)
[2023-12-15] MEDS ORDERED: SODIUM CHLORIDE 0.9% 1,000 ML IV SCH (22:15)
[2023-12-15] MEDS ORDERED: LORAZEPAM 2MG/ML INJ IV PRN (22:15)
[2023-12-15] MEDS ORDERED: ONDANSETRON HCL 4MG/2ML INJ IV PRN (22:15)
[2023-12-15] MEDS ORDERED: INSULIN REGULAR (HUMULIN R) 1000UNITS/10ML VIAL IV ONE (22:15)
[2023-12-15] MEDS ORDERED: PIPERACILLIN/TAZO 3.375G/50ML 50 ML IV SCH (22:30)
[2023-12-15] MEDS ORDERED: BLOOD SUGAR DIAGNOSTIC STRIP TEST SCH (22:30)
[2023-12-15] MEDS ORDERED: THIAMINE HCL 100 MG/1 ML 2ML VIAL IM SCH (23:00)
== END 2023-12-15 23:16 | disposition left against medical advice (07) ==
LOC: ER 16:11
DX: F10.10 Alcohol abuse, uncomplicated (principal); E11.10 Type 2 diabetes mellitus with ketoacidosis without coma; E11.65 Type 2 diabetes mellitus with hyperglycemia; I10 Essential (primary) hypertension; Z87.442 Personal history of urinary calculi; Y90.7 Blood alcohol level of 200-239 mg/100 ml
CPT/HCPCS: 80076; 80048; 81003; 82010; 80320; 82962; 83605; 83690; 83735; 83930; 84100; 85025; 85610; 87040; 87086; 36415; 84145; 74176; 93005; 96361; 96365; 96375; 96376; 99291; J0696; J1815; J1885; J2060; J2405; J1170; J2270 ×2; J7121; J7030; J7120; G0480

== ENCOUNTER 2023-12-19 18:08 | Emergency (ER) | payer MEDICAID ==
[~2023-12-19] VITALS: Ht 172.7 cm; Wt 90.0 kg
[2023-12-19 18:10] VITALS: O2SAT 98
[2023-12-19 19:38] VITALS: TEMP 98.4
[2023-12-19] MEDS: SODIUM CHLORIDE 0.9% 1,000 ML IV ONE (20:19)
[2023-12-19] MEDS: FAMOTIDINE 20MG/2ML VIAL IV STA (20:19)
[2023-12-19] MEDS: ONDANSETRON HCL 4MG/2ML INJ IV STA (20:20)
[2023-12-19 20:23] LABS: BASOPHILS % 0.3 % (0.0-2.0); CHLORIDE 94 mEq/L (98-107); EOSINOPHILS % 0.1 % (0.0-5.0); HEMATOCRIT. 35.5 % (42.0-52.0); HEMOGLOBIN. 11.2 g/dL (14.0-18.0); LYMPHOCYTES % 30.4 % (20.0-50.0); MEAN CORPUSCULAR HEMOGLOBIN 21.3 pg (28.0-32.0); MEAN CORPUSCULAR HGB CONC 31.6 g/dL (31.0-37.0); MEAN CORPUSCULAR VOLUME 67.5 fL (80.0-94.0); MEAN PLATELET VOLUME 7.8 fl (7.4-10.4); MONOCYTES % 6.5 % (2.0-8.0); NEUTROPHILS % 62.7 % (40.0-76.0); PLATELET 341 x1000/uL (130-400); POTASSIUM 3.1 mEq/L (3.5-5.1); RED BLOOD CELL COUNT 5.26 mill/uL (4.7-6.1); RED CELL DISTRIBUTION WIDTH 20.5 % (11.6-14.6); SODIUM 134 mEq/L (136-145); WHITE BLOOD COUNT 10.5 x1000/uL (4.5-11.0)
[2023-12-19 20:24] LABS: ADD RBC MORPHOLOGY YES; CARBON DIOXIDE 22 mEq/L (21-32); DIFFERENTIAL COMMENT 1
[2023-12-19 20:29] LABS: GLUCOSE 353 mg/dL (70-105)
[2023-12-19 20:31] LABS: ALANINE AMINOTRANSFERASE 53 IU/L (10-49); ALBUMIN 4.5 g/dL (3.2-4.8); ASPARTATE AMINOTRANSFERASE 57 IU/L (<34); BILIRUBIN DIRECT 0.1 mg/dL (<=3.0)
[2023-12-19 20:32] LABS: BILIRUBIN TOTAL 0.4 mg/dL (0.1-1.0); PROTEIN TOTAL 7.8 g/dL (6.0-8.3); UREA NITROGEN BLOOD < 5 mg/dL (9-23)
[2023-12-19 20:40] LABS: ANISOCYTOSIS 2+; HYPOCHROMASIA 2+; MICROCYTOSIS 3+; PLATELET ESTIMATE NORMAL
[2023-12-19] MEDS: HALOPERIDOL LACTATE 5MG/ML VIAL IM ONE (21:14)
[2023-12-19 22:04] VITALS: BP 157/100; PULSE 106; RESP 20
[2023-12-19] MEDS: KETOROLAC 15MG/ML VIAL IV ONE (22:04)
== END 2023-12-19 22:19 | disposition left against medical advice (07) ==
LOC: ER 18:08
DX: R11.2 Nausea with vomiting, unspecified (principal); R10.9 Unspecified abdominal pain; F10.20 Alcohol dependence, uncomplicated; E11.9 Type 2 diabetes mellitus without complications; I10 Essential (primary) hypertension; Y90.9 Presence of alcohol in blood, level not specified
CPT/HCPCS: 80076; 80048; 83690; 85025; 87086; 36415; 71045; 96361; 96372; 96374; 96375; 99284; J3490; J1630; J1885; J2405; J7030; Z7610 ×2

== ENCOUNTER 2024-04-10 16:20 | Emergency (ER) | payer MEDICAID ==
[~2024-04-10] VITALS: Ht 172.7 cm; Wt 70.0 kg
[~2024-04-10 16:20] MED LIST changes: -GLIP10TA10 MT; +GLIP10TA17 MT
[2024-04-10 16:22] VITALS: O2SAT 98
[2024-04-10] MEDS: SODIUM CHLORIDE 0.9% 1,000 ML IV ONE (17:13)
[2024-04-10] MEDS: ONDANSETRON HCL 4MG/2ML INJ IV ONE (17:14)
[2024-04-10] MEDS: PANTOPRAZOLE SODIUM 40 MG/VIAL IV ONE (17:14)
[2024-04-10 17:32] LABS: BG CARBOXYHEMOGLOBIN 0.6 % (0.5-1.5); BG DEOXYHEMOGLOBIN 6.8 % (0.0-5.0); BG FRACTION INSPIRED OXYGEN 21; BG METHEMOGLOBIN 0.3 % (0.5-1.5); BG OXYGEN SATURATION 93.1 % (94.0-98.0); BG OXYHEMOGLOBIN 92.3 % (94.0-98.0); BG PCO2 29.1 mmHg (35.0-48.0); BG PO2 75.8 mmHg (83.0-108.0); BG SAMPLE SITE RIGHT RADIAL; BG TOTAL HEMOGLOBIN 12.2 g/dL (13.5-17.5); BG VENT MODE ROOM AIR
[2024-04-10 18:30] VITALS: TEMP 36.83628
[2024-04-10 18:32] LABS: CHLORIDE 100 mEq/L (98-107); POTASSIUM 3.9 mEq/L (3.5-5.1); SODIUM 135 mEq/L (136-145)
[2024-04-10 18:33] LABS: CALCIUM 9.4 mg/dL (8.7-10.4); CARBON DIOXIDE 13 mEq/L (21-32)
[2024-04-10 18:39] LABS: CREATININE 1.2 mg/dL (0.6-1.3); ETHANOL BLOOD 240 mg/dL (<10); GLUCOSE 371 mg/dL (70-105); UREA NITROGEN BLOOD 7 mg/dL (9-23)
[2024-04-10 18:40] LABS: TROPONIN I HIGH SENSITIVITY 6 ng/L (3.0-53)
[2024-04-10 18:45] LABS: BETA HYDROXYBUTYRATE 0.5 mMol/L (0.0-0.3)
[2024-04-10] MEDS: KETOROLAC 30MG/ML VIAL IV NR (18:50)
[2024-04-10 18:55] LABS: BASOPHILS % 0.6 % (0.0-2.0); HEMATOCRIT. 36.9 % (42.0-52.0); HEMOGLOBIN. 10.8 g/dL (14.0-18.0); LYMPHOCYTES % 15.5 % (20.0-50.0); MEAN CORPUSCULAR HEMOGLOBIN 20.3 pg (28.0-32.0); MEAN CORPUSCULAR HGB CONC 29.4 g/dL (31.0-37.0); MEAN PLATELET VOLUME 7.3 fl (7.4-10.4); MONOCYTES % 3.2 % (2.0-8.0); NEUTROPHILS % 80.7 % (40.0-76.0); PLATELET 401 x1000/uL (130-400); RED BLOOD CELL COUNT 5.35 mill/uL (4.7-6.1); RED CELL DISTRIBUTION WIDTH 20.7 % (11.6-14.6); WHITE BLOOD COUNT 10.7 x1000/uL (4.5-11.0)
[2024-04-10 18:56] LABS: ADD RBC MORPHOLOGY YES; DIFFERENTIAL COMMENT 1
[2024-04-10] MEDS: ACETAMINOPHEN 1000MG/100ML 100 ML IV NR (18:57)
[2024-04-10 19:05] LABS: HYPOCHROMASIA 1+; MICROCYTOSIS 1+; PLATELET ESTIMATE NORMAL
[2024-04-10] MEDS ORDERED: SODIUM CHLORIDE 0.9% 1,000 ML IV ONE (19:15)
[2024-04-10] MEDS ORDERED: DOCUSATE SODIUM 100MG CAPSULE PO PRN (19:30)
[2024-04-10] MEDS ORDERED: CLONIDINE 0.1MG TABLET PO PRN (19:30)
[2024-04-10] MEDS ORDERED: THIAMINE HCL 200 MG in SODIUM CHLORIDE 0.9% 100 ML IV SCH (19:30)
[2024-04-10] MEDS ORDERED: MAGNESIUM/ALUMINUM HYDROXIDE/SIMETHICONE 30ML UDC PO PRN (19:30)
[2024-04-10 19:39] VITALS: BP 158/102; PULSE 126; RESP 21; O2SAT 95
[2024-04-10] MEDS: INSULIN LISPRO 100 UNITS/ML SUBCUT NR (19:53)
[2024-04-10] MEDS ORDERED: KCL 20MEQ/100ML PREMIX 100 ML IV PRN (20:00)
[2024-04-10] MEDS ORDERED: ONDANSETRON HCL 4MG/2ML INJ IV PRN (20:00)
[2024-04-10] MEDS ORDERED: INSULIN REGULAR 100U/100ML PMX 100 ML IV SCH (20:15)
[2024-04-10] MEDS: CHLORDIAZEPOXIDE 25MG CAPSULE PO NR (20:16)
[2024-04-10] MEDS: MORPHINE SULFATE 2 MG/ML INJ (NOT FOR IM USE) IV NR (20:22)
[2024-04-10] MEDS ORDERED: BLOOD SUGAR DIAGNOSTIC STRIP TEST SCH (20:30)
[2024-04-10] MEDS ORDERED: SODIUM CHLORIDE 0.9% 1,000 ML IV SCH (20:30)
[2024-04-10] MEDS ORDERED: BLOOD SUGAR DIAGNOSTIC STRIP TEST PRN (20:30)
[2024-04-10] MEDS ORDERED: DEXTROSE 50% WATER 50ML SYRINGE IV PRN (20:30)
[2024-04-10 20:41] LABS: IRON 24 ug/dL (65-175)
[2024-04-10 20:44] LABS: TOTAL IRON BINDING CAPACITY 470 ug/dl (250-425)
[2024-04-10 20:58] LABS: FOLIC ACID (FOLATE) SERUM 14.54 ng/mL (>5.38)
[2024-04-10] MEDS ORDERED: PANTOPRAZOLE SODIUM 40 MG/VIAL IV SCH (21:00)
[2024-04-10 21:08] LABS: VITAMIN B12 SERUM 1128 pg/mL (211-911)
[2024-04-10 22:01] LABS: ALANINE AMINOTRANSFERASE 53 IU/L (10-49); ASPARTATE AMINOTRANSFERASE 109 IU/L (<34); BILIRUBIN DIRECT 0.1 mg/dL (<=3.0); BILIRUBIN TOTAL 0.6 mg/dL (0.1-1.0); PROTEIN TOTAL 8.8 g/dL (6.0-8.3)
[2024-04-11] MEDS ORDERED: FOLIC ACID 1MG TABLET PO SCH (09:00)
== END 2024-04-10 20:52 | disposition left against medical advice (07) ==
LOC: ER 16:20 → EDBEDREQTM 20:11 → EDBEDREQ 20:11 → EDBEDREQSVC 20:11 → ER 20:52
DX: F10.129 Alcohol abuse with intoxication, unspecified (principal); I10 Essential (primary) hypertension; E11.10 Type 2 diabetes mellitus with ketoacidosis without coma; E72.51 Non-ketotic hyperglycinemia; Z79.84 Long term (current) use of oral hypoglycemic drugs; Z79.899 Other long term (current) drug therapy; Y90.8 Blood alcohol level of 240 mg/100 ml or more
CPT/HCPCS: 80076; 80048; 82010; 80320; 82607; 82728; 82746; 82962; 83540; 83550; 83690; 83930; 85025; 84484; 36415; 71045; 93970; 82805; 82375; 93005; 96361; 96365; 96372; 96375; 99285; 36600; J1815; J1885; J2405; J2470; J2270; J7030; Z7610 ×5; J3411; J7050; G0480; J0131